=== PATIENT | male | born 1985 | race Caucasian/White ===

== ENCOUNTER 2023-08-30 22:53 | Emergency (ER) | payer OTHER ==
[~2023-08-30] VITALS: Ht 188 cm; Wt 77.1 kg
[2023-08-31] MEDS ORDERED: KETOROLAC TROMETHAMINE INJ 60 MG/2 ML VIAL IM ONE (00:46)
[2023-08-31] MEDS ORDERED: TDAP [DIPH/PERTUSSIS/TET] 0.5 ML VIAL IM ONE (00:46)
[2023-08-31] MEDS: KETOROLAC TROMETHAMINE INJ 60 MG/2 ML VIAL IM ONE (00:56)
[2023-08-31] MEDS: TDAP [DIPH/PERTUSSIS/TET] 0.5 ML VIAL IM ONE (00:56)
[2023-08-31] MEDS ORDERED: LIDOCAINE HCL/PF 1% 30 ML SDV ONE (01:32)
[2023-08-31 02:40] VITALS: BP 121/75; TEMP 97.8; O2SAT 99
== END 2023-08-31 02:40 | disposition home or self-care (01) ==
LOC: ER 23:04
DX: S61.011A Laceration without foreign body of right thumb without damage to nail, initial encounter (principal); S61.212A Laceration without foreign body of right middle finger without damage to nail, initial encounter; S61.411A Laceration without foreign body of right hand, initial encounter; Z88.0 Allergy status to penicillin; Z88.8 Allergy status to other drugs, medicaments and biological substances; W25.XXXA Contact with sharp glass, initial encounter; Y93.89 Activity, other specified; Y92.89 Other specified places as the place of occurrence of the external cause; Y99.8 Other external cause status
CPT/HCPCS: 12002; 73130; 90471; 90715; 96372; 99284; A6403; J1885; J3490